=== PATIENT | male | born 2000 | race Caucasian/White ===

== ENCOUNTER → 2019-04-01 | Outpatient (CLI) | payer BC ==
--- NOTE | 2019-04-02 10:20 | MR ---
EXAMINATION TYPE: MR shoulder RT wo con DATE OF EXAM: 04/01/2019 COMPARISON: X-ray dated 03/22/2019 HISTORY: Rt shoulder pain x 5 mos TECHNIQUE: Multiplanar, multisequence imaging of the right shoulder is performed without contrast. FINDINGS: There is fluid within the subacromial bursa. Subscapularis tendon has a normal appearance. AC joint is maintained. There is increased fluid surrou nding the supraspinatus tendon and there appears to be intrasubstance signal within the tendon. I bhavna matous change within the anterior fibers of the infraspinatus also noted. No evidence of tendinous re traction or through thickness tear. Benign cystic change involving the humeral head. Glenohumeral ligaments are intact. Labrum appear to be intact by non arthrogram MRI. Suprascapular Notch has a normal appearance. Bicipital tendon well situated the bicipital groove. Int racapsular portion biceps tendon and biceps anchor intact. Small amount of fluid surrounding the anurag ps tendon within the bicipital groove compatible tendinosis or peritendinitis. IMPRESSION: 1. There is fluid surrounding the distal margin of the supraspinatus and infraspinatus tendons with i ntrasubstance signal compatible with diffuse tendinosis. Partial undersurface tear suspected involvin g both tendons greater involvement of the anterior fibers spinatus tendon which measures at least 50% . In this region a partial 1 to 2 mm through thickness tear not excluded. With no retraction. 2. There is a small amount of fluid surrounding the biceps tendon compatible tendinosis.
== END | disposition home or self-care (01) ==
LOC: RADMRIMAIN 19:34
PROVIDERS: ATTEND Orthopaedic Surgery
DX: M67.813 Other specified disorders of tendon, right shoulder (principal)

== ENCOUNTER → 2025-03-20 | Outpatient (CLI) | payer OTHER ==
[2025-03-20 22:02] LABS: Microalbumin Creatinine Ratio <42 mg/g Cr (0-30); Urine Creatinine 28.4 mg/dL (39.0-259.0)
[2025-03-20 22:05] LABS: ALT 28 U/L (10-49); AST 26 U/L (14-35); Albumin 4.7 g/dL (3.8-4.9); Albumin/Globulin Ratio 1.74 Ratio (1.60-3.17); Alkaline Phosphatase 95 U/L (41-126); Blood Urea Nitrogen 17.6 mg/dL (9.0-27.0); Calcium 9.7 mg/dL (8.7-10.3); Carbon Dioxide 29.8 mmol/L (21.6-31.8); Chloride 99 mmol/L (96-109); Chol/HDL Ratio 2.23 Ratio; Globulin 2.7 g/dL (1.6-3.3); Glucose 118 mg/dL (70-110); LDL Cholesterol,Calculated 84.3 mg/dL (0.0-131.0); Potassium 4.2 mmol/L (3.5-5.5); Sodium 139 mmol/L (135-145); T4, Free (Free Thyroxine) 0.94 ng/dL (0.80-1.80); Total Bilirubin 0.3 mg/dL (0.3-1.2); Total Protein 7.4 g/dL (6.2-8.2); VLDL Calculation 10.58 mg/dL (5.00-40.00)
== END | disposition home or self-care (01) ==
LOC: LABWHC1 15:40
PROVIDERS: ATTEND Internal Medicine
DX: E10.65 Type 1 diabetes mellitus with hyperglycemia (principal); E03.9 Hypothyroidism, unspecified
CPT/HCPCS: 36415; 80053; 80061; 82043; 82570; 83036; 84439; 84443